=== PATIENT | female | born 1980 | race African-American/Black ===

== ENCOUNTER 2020-12-29 16:58 | Emergency (ER) | payer SELFPAY ==
[2020-12-29 17:06] VITALS: BP 115/62; PULSE 98; RESP 16; TEMP 36.9; O2SAT 100
--- NOTE | 2020-12-29 17:16 | ED.SKABFB ---
HPI - Skin/Abscess/Foreign Bdy General Chief complaint: Skin/Abscess/Foreign Body Stated complaint: BEE STINGS Time Seen by Provider: 12/29/20 17:07 Source: patient and RN notes reviewed Mode of arrival: ambulatory Limitations: no limitations History of Present Illness HPI narrative: Patient presents today with bee stings to her left posterior thigh and right scapula 30 minutes prior to arrival. Patient reports severe pain surrounding the stinging area. States that when she gets stung by bees she typically gets itching over her entire body hospital but denies anaphylactic reactions. She has tried no ufhj-vht-dbeawdl medication prior to arrival. Denies shortness of breath, facial swelling, difficulty swallowing. MD complaint: insect bite/sting Related Data Allergies Allergy/AdvReac Type Severity Reaction Status Date / Time SHELLFISH- HIVES, TONGUE Allergy Unknown Uncoded 11/11/02 12:23 ERASMO Review of Systems Review of Systems: CONSTITUTIONAL: Denies body aches, fever, chills, or sweats. EYES: Denies visual changes, redness, or discharge. ENT: Denies rhinorrhea, congestion, sore throat, or otalgia. CARDIOVASCULAR: Denies chest pain, palpitations, or edema. RESPIRATORY: Denies cough or dyspnea. GASTROINTESTINAL: Denies abdominal pain, nausea, vomiting, or diarrhea. GENITOURINARY: Denies dysuria or hematuria. SKIN: Denies rash, itching. + Bee sting MUSCULOSKELETAL: Denies back pain, joint pain, or myalgia. NEUROLOGIC: Denies headache, numbness, tingling, or weakness. PSYCH: Denies depression or anxiety. PMFSH Comments At time of signature, I have reviewed and agree with nursing past medical, surgical, social and family history unless otherwise noted. Please see nursing chart for further information. There is no relevant family history pertinent to the presenting complaint Exam Narrative: GENERAL: Well-appearing, well-nourished, and in no acute distress. HEAD: Normocephalic, atraumatic. EYES: EOMI. No redness or drainage. Conjunctivae normal. ENT: Mucous membranes pink and moist. NECK: Normal AROM. CHEST: No respiratory distress. EXTREMITIES: Normal range of motion. No edema. SKIN: Warm, dry, no rash. Capillary refill normal. Normal skin turgor. Insect sting to the right scapula with surrounding erythema and localized edema measuring approximately 3 x 3 cm. Insect sting to left posterior upper leg measuring approximately 3 x 4 cm with erythema and localized edema. No additional rashes or swelling noted throughout the body. NEURO: No focal deficits. Alert and oriented x3. Gait steady. PSYCH: Normal affect. No signs of depression or anxiety. Course Course Emergency Course: Patient declines Benadryl or ibuprofen. Vital Signs Vital signs: Vital Signs Temperature 98.4 F 12/29/20 17:06 Pulse Rate 98 12/29/20 17:06 Respiratory Rate 16 12/29/20 17:06 Blood Pressure 115/62 12/29/20 17:06 Pulse Oximetry 100 12/29/20 17:06 Temperature 98.4 F 12/29/20 17:06 Pulse Rate 98 12/29/20 17:06 Respiratory Rate 16 12/29/20 17:06 Blood Pressure 115/62 12/29/20 17:06 Pulse Oximetry 100 12/29/20 17:06 Reviewed MDM - Skin/Abscess/Foreign Bdy Differential Diagnosis Differential diagnosis: Likely insect bites Critical Care Time Critical Care Time Critical Care Time: No Discharge Plan Discharge Clinical Impression: Bee sting Qualifiers: Encounter type: initial encounter Injury intent: accidental or unintentional Qualified Code(s): T63.441A - Toxic effect of venom of bees, accidental (unintentional), initial encounter Patient Disposition: Home, Self-Care Condition: Stable Instructions: Insect Bite or Sting (ED) Additional Instructions: Take some Benadryl for itching and allergic reaction. Take Tylenol or ibuprofen at home for pain. Apply topical calamine lotion or Benadryl cream for itching. Follow-up with your PCP with any concerns. Patient Language: Wolof Follow-up/
== END 2020-12-29 17:21 | disposition home or self-care (01) ==
PROVIDERS: Emergency Provider Nurse Practitioner; PCP Family Medicine
DX: T63.441A Toxic effect of venom of bees, accidental (unintentional), initial encounter (principal)
CPT/HCPCS: 99211; G0463

== ENCOUNTER 2021-03-14 17:28 | Emergency (ER) | payer SELFPAY ==
--- NOTE | 2021-03-14 17:30 | ED.URI ---
HPI - URI/Sore Throat General Chief Complaint: Ear Stated Complaint: ear pain/nasal cocngestion/cough Time Seen by Provider: 03/14/21 17:30 Source: patient and RN notes reviewed History of Present Illness HPI Narrative: Patient is a 40-year-old female who presents the urgent care with her mother with complaints of bilateral ear congestion, nasal congestion, postnasal drainage and mild cough. Patient states the nasal congestion has been off and on since February 23 and she has been taking her daily Claritin and believe Zyrtec as well as taking Sudafed for the last 2 days. Patient states the cough just started 2 days ago. Patient states that she does typically have seasonal allergies but has been able to clear these allergies up . Patient denies of any fever, chills, night, vomiting. Denies of sore throat. No other acute complaints. No acute distress noted. Patient and mother aware of the plan of care. Some parts of this dictation were generated by voice recognition software and may contain typographical and/or grammatical inaccuracies. Related Data Allergies Allergy/AdvReac Type Severity Reaction Status Date / Time SHELLFISH- HIVES, TONGUE Allergy Intermediate Swelling Uncoded 03/14/21 17:32 SWELLS of Lip/Tongue/Throat Review of Systems Review of Systems: CONSTITUTIONAL: Denies fever, chills, or sweats. EYES: Denies visual changes, redness, or discharge. ENT: Reports of nasal congestion, postnasal drainage, bilateral otalgia CARDIOVASCULAR: Denies chest pain, palpitations, or edema. RESPIRATORY: Reports a mild nonproductive cough without dyspnea GASTROINTESTINAL: Denies abdominal pain, nausea, vomiting, or diarrhea. GENITOURINARY: Denies dysuria or hematuria. SKIN: Denies rash or itching. MUSCULOSKELETAL: Denies back pain, joint pain, or myalgia. NEUROLOGIC: Denies headache, numbness, or weakness. All other systems reviewed are negative, except as documented in HPI. PMFSH Comments At the time of my signature, I reviewed and agree with the nursing past medical, surgical, social, and family history. There is no relevant family history pertinent to the patient complaint. Exam Narrative: GENERAL: This is a well-nourished, well-developed patient, in no apparent distress. HEAD: normocephalic, atraumatic. EYES: PERRL. Sclera clear/white. Vision is grossly intact. EARS: External ears normal, auditory canals clear and without drainage, moderate fluid noted behind bilateral TMs without otitis, TMs normal without perforation. Hearing grossly intact. NOSE: External nose normal with no obvious nasal discharge, nares without redness, no rhinorrhea. THROAT: Mucous membranes moist, posterior pharynx clear. Moderate postnasal drainage NECK: Neck supple, non-tender without lymphadenopathy CARDIOVASCULAR: Regular rate and rhythm without murmurs, gallops, or rubs. RESPIRATORY: Clear to auscultation. Breath sounds equal bilaterally. No wheezes, rales, or rhonchi. SKIN: warm, intact with no suspicious lesions or rash, good texture and turgor. NEURO: awake, alert, and oriented to person, place and time. There were no obvious focal neurologic abnormalities. EXTREMITIES: No clubbing, cyanosis, or edema. Course Vital Signs Vital signs: Vital Signs Temperature 98.1 F 03/14/21 17:40 Pulse Rate 99 03/14/21 17:40 Respiratory Rate 16 03/14/21 17:40 Blood Pressure 111/58 L 03/14/21 17:40 Pulse Oximetry 100 03/14/21 17:40 Temperature 98.1 F 03/14/21 17:40 Pulse Rate 99 03/14/21 17:40 Respiratory Rate 16 03/14/21 17:40 Blood Pressure 111/58 L 03/14/21 17:40 Pulse Oximetry 100 03/14/21 17:40 Reviewed MDM - URI/Sore Throat MDM Narrative Medical decision making narrative: Advised patient continue taking her daily allergy medication, Claritin/Zyrtec. Complete the steroid regimen as prescribed. Be sure to eat and drink with the medication. Use Flonase prior to bedtime. May use twice daily for the next 7 days.
[2021-03-14 17:40] VITALS: BP 111/58; PULSE 99; RESP 16; TEMP 36.7; O2SAT 100
== END 2021-03-14 17:54 | disposition home or self-care (01) ==
PROVIDERS: Emergency Provider Nurse Practitioner Family; PCP Family Medicine
DX: J32.9 Chronic sinusitis, unspecified (principal); J30.9 Allergic rhinitis, unspecified
CPT/HCPCS: 99213; G0463

== ENCOUNTER 2023-01-15 08:26 | Outpatient (CLI) | payer OTHER, SELFPAY ==
[2023-01-15 08:53] LABS: Hematocrit 36.1 % (37.0-47.0)
== END 2023-01-15 08:27 | disposition home or self-care (01) ==
PROVIDERS: PCP Hospitalist; Visit Provider Student in an Organized Health Care Education/Training Program
DX: N93.9 Abnormal uterine and vaginal bleeding, unspecified (principal)
CPT/HCPCS: 36415; 85014; 85018

== ENCOUNTER 2023-01-18 01:49 | Day surgery (SDC) | payer OTHER, SELFPAY ==
[2023-01-12 12:46] VITALS: BMI 29.1
--- NOTE | 2023-01-12 12:50 | PC.NURSE ---
Report to the Outpatient Waiting Room, entrance under the green pavilion located off [facility], at time _1000_ on date _[id number]_. Planned Procedure Time: _1200_. Time changes happen often and if your time is changed the preop area will call you the afternoon before. - You and your visitor will be asked to self-screen and do not enter if you have any COVID symptoms. - A mask is optional within the hospital at this time. Patients may have clear liquids (water, carbonated beverages, clear teas, apple juice) until 3 hours prior to surgery with a maximum of 20 ounces. - No food from midnight until time of surgery Take the following medications with a SIP of water the morning of surgery: ____None DO NOT STOP ANY OF YOUR OTHER PRESCRIPTION MEDICATIONS PRIOR TO SURGERY ?EXCEPT THE FOLLOWING Medications to discontinue per physician All vitamins and supplements Date to take last ulsn___[id number] Please no make-up, nail sudanese, hairspray, perfume, deodorant, or body powder the day of surgery. No jewelry (including any body piercings) or valuables the day of surgery, leave them at home. Please take a shower or bath the night before, or the morning of, surgery with an antibacterial soap. Wear comfortable, loose fitting clothing. - Jewelry must be removed prior to entering the operating room. Rings and piercings that are not removed may be cut off. - The hospital will not accept responsibility for valuables. - Please leave all valuables, including medications, at home the day of surgery. If you are going home after surgery, a licensed snaker tractor driver must drive you home. - NO public transportation without another adult if you receive anesthesia. - We recommend that an adult stay with you for 24 hours following discharge. - We also recommend that you do not drive, make important decision, drink alcoholic beverages, or take any drugs that were not prescribed by your health care provider for at least 24 hours after your discharge time. Follow any additional instructions given to you from your surgeon. If you or anyone in your household have experienced Covid symptoms in the past week, please notify your surgeon or the nurse liaison at the phone number below for possible testing. Telephone instructions given to _Patient___and asked if any additional questions and then verbalized understanding. Patient advised to call surgeon office or pre surgery nurse liaison [phone] if any additional questions.
--- NOTE | 2023-01-18 08:00 | PM.IMHP ---
H&P: HPI History of Present Illness Date/Time: 01/18/23 08:00 Chief Complaint: Abnormal uterine bleeding Narrative: 42-year-old female who presents for hysteroscopy D&C for abnormal uterine bleeding.? Patient initially presented after an episode of postcoital bleeding.? Patient was also reporting heavy menses.? Patient had pelvic ultrasound which revealed uterine fibroids and possible polyp.? Patient continues to have abnormal bleeding.? Patient is not interested in hysterectomy.? She is not trying to conceive at this time but does not wish to be infertile. Review of Systems Cardiovascular: Cardiovascular: Denies chest pain, Denies leg edema, Denies palpitations, Denies dyspnea and Denies dyspnea on exertion Respiratory: Respiratory: Denies cough, Denies dyspnea and Denies dyspnea on exertion Gastrointestinal: Gastrointestinal: Denies abdominal pain, Denies constipation, Denies diarrhea, Denies nausea and Denies vomiting Genitourinary: Genitourinary: Denies hematuria, Denies urinary frequency, Denies dysuria, Denies pelvic pain, Denies urinary incontinence and Denies vaginal discharge Neurologic: Reports system reviewed and no additional complaints, except as documented Psychiatric: Psychiatric: Reports no additional psychiatric complaints Endocrine: Endocrine: Denies palpitations [facility] Family History Family History Father Diabetes mellitus Hypertension Sibling Diabetes mellitus Grandparent Diabetes mellitus Social History Social History Smoking status: Never smoker Alcohol intake: never Substance use: never Living arrangements: with family Occupation/Education: occupation Gender identity (if verbalized by the patient): Female Sexual Orientation (if Verbalized by the Patient): Straight or Heterosexual Spiritual care concerns: No Meds Home Medications and Allergies Home Medications Medication Instructions Recorded Confirmed Type condoms - female (FC2 Female #12 ea 09/13/22 Rx Condom) metronidazole 500 mg tablet 500 mg PO Q12H #14 tabs 09/28/22 01/12/23 Rx elderberry fruit 200 mg capsule 200 mg PO TID 01/12/23 01/12/23 History ferrous sulfate 325 mg (65 mg 325 mg PO DAILY 01/12/23 01/12/23 History iron) tablet,delayed release fluticasone propionate 50 2 spray intranasal TID PRN Allergy 01/12/23 01/12/23 History mcg/actuation nasal Symptoms spray,suspension (Flonase Allergy Relief) lactobacillus combination no.8 3 3 cell PO DAILY 01/12/23 01/12/23 History billion cell capsule loratadine 10 mg tablet (Claritin) 10 mg PO DAILY 01/12/23 01/12/23 History multivitamin 1 tablet PO DAILY 01/12/23 01/12/23 History omega 8-gdi-cko-fish oil 300 1 cap PO DAILY 01/12/23 01/12/23 History mg-1,000 mg capsule (Fish Oil) potassium chloride 8 mEq 8 meq PO DAILY 01/12/23 01/12/23 History capsule,extended release Allergies Allergy/AdvReac Type Severity Reaction Status Date / Time diphenhydramine Allergy Intermediate Rash Verified 01/12/23 10:09 [From Benadryl] fluconazole [From Diflucan] Allergy Mild Rash Verified 01/12/23 10:09 SHELLFISH- HIVES, TONGUE Allergy Intermediate Swelling Uncoded 01/12/23 10:09 SWELLS of Lip/Tongue/Throat Exam Const: General: no acute distress Eyes: EOM: EOMs intact bilaterally Neck: Neck: supple Thyroid: thyroid normal Chest: Breast/axilla inspection: normal inspection of the breasts Breast/axilla palpation: normal palpation of the breasts, normal palpation of the axillae and no axillary lymphadenopathy Resp: Effort & Inspection: normal respiratory effort Auscultation: clear to auscultation bilaterally Cardio: Rate: regular rate Rhythm: regular rhythm GI: Inspection: non-distended GI Palp: Yes Soft to palpation, No Tenderness to palpation present (GI) and No Guarding due to palpation present (GI) Ausculta
--- NOTE | 2023-01-18 08:05 | WPDHPUPDATE1 ---
History and Physical Update Update Date/Time: 01/18/23 08:05 History and Physical has been reviewed, including an updated exam of the patient. There are NO changes in the patient's condition. Risks, benefits, and alternatives have been discussed and questions answered. Patient agrees to proceed with procedure.
--- NOTE | 2023-01-18 09:07 | P.PNAN_ITS ---
Anes - Initial Pre Proc Eval Procedure: Operation Date: 01/18/23 12:00 Proposed Procedures p Hysteroscopy Dilation and Curettage with Polypectomy - Oliver Hernandez MD Date/Time: 01/18/23 09:07 Surgeon: Oliver Hernandez MD Pre Op Diagnosis: abnormal uterine bleeding Patient Data Age: 42 Gender: F Height: 1.65 m Weight: 79.5 kg Allergies Allergy/AdvReac Type Severity Reaction Status Date / Time shellfish derived Allergy Severe Anaphylaxis Verified 01/18/23 10:24 fluconazole [From Diflucan] Allergy Mild Rash Verified 01/12/23 10:09 Home Medications Medication Instructions Recorded Confirmed Type condoms - female (FC2 Female #12 ea 09/13/22 Rx Condom) metronidazole 500 mg tablet 500 mg PO Q12H #14 tabs 09/28/22 01/18/23 Rx elderberry fruit 200 mg capsule 200 mg PO TID 01/12/23 01/18/23 History ferrous sulfate 325 mg (65 mg 325 mg PO DAILY 01/12/23 01/18/23 History iron) tablet,delayed release fluticasone propionate 50 2 spray intranasal TID PRN Allergy 01/12/23 01/12/23 History mcg/actuation nasal Symptoms spray,suspension (Flonase Allergy Relief) lactobacillus combination no.8 3 3 cell PO DAILY 01/12/23 01/18/23 History billion cell capsule loratadine 10 mg tablet (Claritin) 10 mg PO DAILY 01/12/23 01/18/23 History multivitamin 1 tablet PO DAILY 01/12/23 01/18/23 History omega 4-vct-fgl-fish oil 300 1 cap PO DAILY 01/12/23 01/18/23 History mg-1,000 mg capsule (Fish Oil) potassium chloride 8 mEq 8 meq PO DAILY 01/12/23 01/18/23 History capsule,extended release Patient hx anesthesia problems: none Family hx anesthesia problems: none Results Review: All pre-operative results and documents have been reviewed as part of the pre- operative evaluation. [facility] Past Medical History Medical History (Updated 01/18/23 @ 09:07 by Reji Crespo DO) WU (obstructive sleep apnea) mild Pre-diabetes Family History Family History Father Diabetes mellitus Hypertension Sibling Diabetes mellitus Grandparent Diabetes mellitus Social History Social History Smoking status: Never smoker Alcohol intake: never Substance use: never Living arrangements: with family Occupation/Education: occupation Gender identity (if verbalized by the patient): Female Sexual Orientation (if Verbalized by the Patient): Straight or Heterosexual Spiritual care concerns: No Anes - Eval Final PreProcedure Day of Procedure 01/18/23 09:07 Patient weight: overweight Heart: regular rate and rhythm Lungs: clear to auscultation Airway: Mallampati scale class II Neurological: alert and oriented Last oral intake: >/= 8 hours ASA classification: II Emergent: no Anesthetic plan: proceed Anesthesia type and monitoring: general GIVS and standard monitoring Results Review: All pre-operative results and documents have been reviewed as part of the pre- operative evaluation. Informed Consent: The patient's anesthetic plan and its attendant risks and benefits were discussed with the patient/family/POA. Questions were solicited and answers provided to the satisfaction of the patient/family/POA.
[2023-01-18 10:10] VITALS: BP 101/61; PULSE 78; RESP 20; TEMP 37.1; O2SAT 100
[2023-01-18] MEDS: ACETAMINOPHEN 500 MG TABLET 1000 MG PO (10:39)
[2023-01-18] MEDS: LACTATED RINGERS 1,000 ML 30 ML IV CONT ×2 (10:45→13:07)
[2023-01-18 12:20] VITALS: BP 100/58; PULSE 74; RESP 14; O2SAT 100
--- NOTE | 2023-01-18 12:21 | W.PM.PROC2 ---
Procedure Note - Detailed Date of Procedure 01/18/23 Pre-op Diagnosis abnormal uterine bleeding Post-op Diagnosis Same Procedure Performed hysteroscopy dilation & curettage hysteroscopic myomectomy Surgeon Oliver Hernandez MD Anesthesia General Indications abnormal uterine bleeding Findings heterogenous mass extending in the uterine cavity from the posterior uterine wall, suspect uterine fibroid. normal tubal ostia bilaterally Description of Procedure Monik Cope presents for the above procedure for AUB. She was counseled as to the indications, risks, benefits, and alternatives to surgery, with the risks including bleeding, infection, damage to surrounding organs, VTE, and complications of anesthesia. Her verbal and written consent was obtained. PROCEDURE: The patient was taken to the OR and general anesthesia induced. She was prepped and draped in Aaron stirrups with support of the back and bilateral lower extremities. I/O catheterization performed of the bladder. The above findings were noted. A single tooth tenaculum was placed on the anterior lip of the cervix. The cervix was dilated with sequential Elana dilators. Hysteroscopy, using a normal saline medium, was performed and showed the above findings. The endometrial lining was visualized and a suspected uterine fibroid within the uterine cavity was found. The operative hysteroscopic blade was introduced and was then used to remove the suspected fibroid and sample the endometrial lining, restoring a normal appearing endometrial cavity. The tissue was sent to pathology. The tenaculum was removed and hemostasis was observed. The patient tolerated the procedure well. Sponge, lap, and needle counts were correct. The patient was taken to the recovery room in stable condition. Estimated Blood Loss 10 Urine Output 150 Drains No Packing No Pathology Yes (endometrial curettings ) Complications No immediate complications Condition Stable Disposition PACU [facility] Billing Surgery - Charge Forward: Surgery Billing
[2023-01-18] MEDS: fentaNYL CITRATE INJ (*CRX) 100 MCG/2 ML VIAL 25 MCG IV PUSH ×2 (12:33→12:40)
[2023-01-18 12:50] VITALS: BP 103/50; PULSE 63; RESP 14; O2SAT 100
[2023-01-18] MEDS: ONDANSETRON INJ 4 MG/2 ML VIAL IV PUSH (13:07)
[2023-01-18 13:20] VITALS: BP 101/63; PULSE 57; RESP 14
== END 2023-01-18 14:00 | disposition home or self-care (01) ==
PROVIDERS: PCP Hospitalist; Visit Provider Student in an Organized Health Care Education/Training Program
PROC: 0U5B8ZZ Destruction of Endometrium, Via Natural or Artificial Opening Endoscopic (ICD-10-PCS; CPT 58563; principal; 2023-01-18 12:00)
DX: N93.9 Abnormal uterine and vaginal bleeding, unspecified (principal); N85.8 Other specified noninflammatory disorders of uterus; G47.33 Obstructive sleep apnea (adult) (pediatric); R73.03 Prediabetes
CPT/HCPCS: 58558; 88305; A9270; J2250; J2405; J2704; J3010; J7120

== ENCOUNTER → 2023-03-02 07:18 | Outpatient (CLI) | payer OTHER, SELFPAY ==
--- NOTE | ~2023-03-02 | MM_ITS ---
EXAMINATION: MM screening andra BI w mei HISTORY: Screening mammogram TECHNIQUE: Craniocaudal and mediolateral oblique 3-D tomosynthesis images were obtained and synthetic 2-D images were generated. CAD analysis was submitted and interpreted. COMPARISON: No prior mammogram is available for comparison at this institution. BREAST PARENCHYMAL COMPOSITION:There are scattered areas of fibroglandular density. FINDINGS: No suspicious mass, calcification, or architectural distortion are identified in either rafa ast to suggest malignancy. IMPRESSION: No mammographic evidence of malignancy. Recommend routine screening mammography in one year. BI-RADS Category 1: Negative Reviewed, dictated and finalized at location .
== END ==
PROVIDERS: PCP Student in an Organized Health Care Education/Training Program; Visit Provider Student in an Organized Health Care Education/Training Program
DX: Z12.31 Encounter for screening mammogram for malignant neoplasm of breast (principal)
CPT/HCPCS: 77063; 77067

== ENCOUNTER 2023-03-17 08:17 | Emergency (ER) | payer OTHER, SELFPAY ==
[2023-03-17 08:43] VITALS: BP 104/73; PULSE 93; RESP 16; TEMP 36.9; O2SAT 100
--- NOTE | 2023-03-17 08:43 | ED.URI ---
HPI - URI/Sore Throat General Chief Complaint: Upper Respiratory Infection Stated Complaint: Cold symptoms Time Seen by Provider: 03/17/23 08:43 Source: patient, RN notes reviewed and old records reviewed Mode of arrival: ambulatory Limitations: no limitations History of Present Illness HPI Narrative: 42-year-old female presents to the [facility] with complaints cold symptoms that started yesterday. Patient reports sinus congestion and cough. Reports a low-grade fever of 99. No treatment prior to arrival. Related Data Home Medications Medication Instructions Recorded Confirmed elderberry fruit 200 mg capsule 200 mg PO TID 01/12/23 03/17/23 ferrous sulfate 325 mg (65 mg 325 mg PO DAILY 01/12/23 03/17/23 iron) tablet,delayed release fluticasone propionate 50 2 spray intranasal TID PRN Allergy 01/12/23 03/17/23 mcg/actuation nasal Symptoms spray,suspension (Flonase Allergy Relief) lactobacillus combination no.8 3 3 cell PO DAILY 01/12/23 03/17/23 billion cell capsule loratadine 10 mg tablet (Claritin) 10 mg PO DAILY 01/12/23 03/17/23 multivitamin 1 tablet PO DAILY 01/12/23 03/17/23 omega 0-sdo-qsy-fish oil 300 1 cap PO DAILY 01/12/23 03/17/23 mg-1,000 mg capsule (Fish Oil) potassium chloride 8 mEq 8 meq PO DAILY 01/12/23 03/17/23 capsule,extended release Allergies Allergy/AdvReac Type Severity Reaction Status Date / Time shellfish derived Allergy Severe Anaphylaxis Verified 03/17/23 08:41 fluconazole [From Diflucan] Allergy Mild Rash Verified 03/17/23 08:41 Review of Systems Review of Systems: All systems reviewed & are unremarkable except as noted in HPI and below Constitutional: Constitutional: Reports no additional constitutional complaints Eyes: Eyes: Reports no additional eye complaints ENT: Reports as per HPI, Reports sinus pain and Reports sinus pressure Cardiovascular: Cardiovascular: Reports no additional cardiovascular complaints, Denies chest pain and Denies dyspnea Respiratory: Respiratory: Reports as per HPI, Reports chest congestion, Reports cough and Denies dyspnea Gastrointestinal: Gastrointestinal: Reports no additional gastrointestinal complaints, Denies abdominal pain, Denies nausea and Denies vomiting Musculoskeletal: Musculoskeletal: Reports no additional musculoskeletal complaints Integumentary/Breasts: Skin/Breast: Reports system reviewed and no additional complaints, except as docu Neurologic: Reports system reviewed and no additional complaints, except as documented Psychiatric: Psychiatric: Reports no additional psychiatric complaints Allergic/Immunologic: Allergic/Immunologic: Reports no additional allergic/immunologic complaints PMFSH Past Medical History Medical History WU (obstructive sleep apnea) mild Pre-diabetes Surgical History Surgical History History of hysteroscopy D & C Family History Family History Father Diabetes mellitus Hypertension Sibling Diabetes mellitus Grandparent Diabetes mellitus Social History Social History Smoking status: Never smoker Alcohol intake: never Substance use: never Living arrangements: with family Occupation/Education: occupation Gender identity (if verbalized by the patient): Female Sexual Orientation (if Verbalized by the Patient): Straight or Heterosexual Spiritual care concerns: No Comments At the time of my signature, I reviewed and agree with the nursing past medical, surgical, social, and family history. There is no relevant family history pertinent to the patient complaint. Exam Const: General: cooperative, healthy appearing, comfortable, no acute distress, well developed, alert and well nourished Nutritional Appearance: well nourished Orientation/consciousnes
== END 2023-03-17 09:02 | disposition home or self-care (01) ==
PROVIDERS: Emergency Provider Nurse Practitioner; PCP Family Medicine
DX: J11.1 Influenza due to unidentified influenza virus with other respiratory manifestations (principal); Z20.822 Contact with and (suspected) exposure to COVID-19; R73.03 Prediabetes
CPT/HCPCS: 87426; 87804; 99213; C9803; G0463

== ENCOUNTER 2023-03-18 08:21 | Emergency (ER) | payer OTHER, SELFPAY ==
[2023-03-18 08:48] VITALS: BP 107/69; PULSE 84; RESP 16; TEMP 36.6; O2SAT 100
--- NOTE | 2023-03-18 09:02 | ED.URI ---
HPI - URI/Sore Throat General Chief Complaint: Upper Respiratory Infection Stated Complaint: Flu symptoms Time Seen by Provider: 03/18/23 09:02 Source: patient, RN notes reviewed and old records reviewed Mode of arrival: ambulatory Limitations: no limitations History of Present Illness HPI Narrative: 42-year-old female returns to the [facility] requesting another influenza test. Patient started symptoms 2 days ago with congestion. Son tested positive for flu yesterday. Onset (ago): day(s) (1) Related Data Home Medications Medication Instructions Recorded Confirmed elderberry fruit 200 mg capsule 200 mg PO TID 01/12/23 03/18/23 ferrous sulfate 325 mg (65 mg 325 mg PO DAILY 01/12/23 03/18/23 iron) tablet,delayed release fluticasone propionate 50 2 spray intranasal TID PRN Allergy 01/12/23 03/18/23 mcg/actuation nasal Symptoms spray,suspension (Flonase Allergy Relief) lactobacillus combination no.8 3 3 cell PO DAILY 01/12/23 03/18/23 billion cell capsule loratadine 10 mg tablet (Claritin) 10 mg PO DAILY 01/12/23 03/18/23 multivitamin 1 tablet PO DAILY 01/12/23 03/18/23 omega 4-bsk-ned-fish oil 300 1 cap PO DAILY 01/12/23 03/18/23 mg-1,000 mg capsule (Fish Oil) potassium chloride 8 mEq 8 meq PO DAILY 01/12/23 03/18/23 capsule,extended release Allergies Allergy/AdvReac Type Severity Reaction Status Date / Time shellfish derived Allergy Severe Anaphylaxis Verified 03/18/23 08:28 fluconazole [From Diflucan] Allergy Mild Rash Verified 03/18/23 08:28 Review of Systems Review of Systems: All systems reviewed & are unremarkable except as noted in HPI and below Constitutional: Constitutional: Reports no additional constitutional complaints Eyes: Eyes: Reports no additional eye complaints ENT: Reports as per HPI Cardiovascular: Cardiovascular: Reports no additional cardiovascular complaints, Denies chest pain and Denies dyspnea Respiratory: Respiratory: Reports no additional respiratory complaints, Denies chest congestion, Denies cough and Denies dyspnea Gastrointestinal: Gastrointestinal: Reports no additional gastrointestinal complaints, Denies abdominal pain, Denies nausea and Denies vomiting Musculoskeletal: Musculoskeletal: Reports no additional musculoskeletal complaints Integumentary/Breasts: Skin/Breast: Reports system reviewed and no additional complaints, except as docu Neurologic: Reports system reviewed and no additional complaints, except as documented Psychiatric: Psychiatric: Reports no additional psychiatric complaints Allergic/Immunologic: Allergic/Immunologic: Reports no additional allergic/immunologic complaints PMFSH Past Medical History Medical History WU (obstructive sleep apnea) mild Pre-diabetes Surgical History Surgical History History of hysteroscopy D & C Family History Family History Father Diabetes mellitus Hypertension Sibling Diabetes mellitus Grandparent Diabetes mellitus Social History Social History Smoking status: Never smoker Alcohol intake: never Substance use: never Living arrangements: with family Occupation/Education: occupation Gender identity (if verbalized by the patient): Female Sexual Orientation (if Verbalized by the Patient): Straight or Heterosexual Spiritual care concerns: No Comments At the time of my signature, I reviewed and agree with the nursing past medical, surgical, social, and family history. There is no relevant family history pertinent to the patient complaint. Exam Const: General: cooperative, healthy appearing, comfortable, no acute distress, well developed, alert and well nourished Nutritional Appearance: well nourished Orientation/consciousness: patient oriented x3 Limitations:
== END 2023-03-18 09:14 | disposition home or self-care (01) ==
PROVIDERS: Emergency Provider Nurse Practitioner; PCP Hospitalist
DX: J11.1 Influenza due to unidentified influenza virus with other respiratory manifestations (principal); R73.03 Prediabetes
CPT/HCPCS: 87804; 99213; G0463

== ENCOUNTER 2023-12-11 09:25 | Emergency (ER) | payer OTHER, SELFPAY ==
[2023-12-11 09:35] VITALS: BP 114/71; PULSE 86; RESP 16; TEMP 36.8; O2SAT 100
--- NOTE | 2023-12-11 10:04 | ED.SKABFB ---
HPI - Skin/Abscess/Foreign Bdy General Chief complaint: Skin/Abscess/Foreign Body Stated complaint: INSECT BITES Time Seen by Provider: 12/11/23 10:05 Source: patient, RN notes reviewed and old records reviewed Mode of arrival: ambulatory Limitations: no limitations History of Present Illness HPI narrative: 43-[facility]-old [facility] for complaint insect bites to posterior neck, back, bilateral upper extremities bilateral lower extremities. Patient reports she believes they are mosquito bites and that she started noticing them 3 days ago. Patient reports allergy to shellfish, fluconazole, diphenhydramine. Patient denies ever having a reaction like this to insect bites in the past. Patient denies recent illness, cough, shortness of breath, fever, recent travel. Patient has not attempted to treat at home. Patient in no acute distress. Related Data Home Medications Medication Instructions Recorded Confirmed elderberry fruit 200 mg capsule 200 mg PO TID 01/12/23 12/11/23 ferrous sulfate 325 mg (65 mg 325 mg PO DAILY 01/12/23 12/11/23 iron) tablet,delayed release fluticasone propionate 50 2 spray intranasal TID PRN Allergy 01/12/23 12/11/23 mcg/actuation nasal Symptoms spray,suspension (Flonase Allergy Relief) lactobacillus combination no.8 3 3 cell PO DAILY 01/12/23 12/11/23 billion cell capsule loratadine 10 mg tablet (Claritin) 10 mg PO DAILY 01/12/23 12/11/23 multivitamin 1 tablet PO DAILY 01/12/23 12/11/23 omega 0-ahc-mhn-fish oil 300 1 cap PO DAILY 01/12/23 12/11/23 mg-1,000 mg capsule (Fish Oil) potassium chloride 8 mEq 8 meq PO DAILY 01/12/23 12/11/23 capsule,extended release Allergies Allergy/AdvReac Type Severity Reaction Status Date / Time shellfish derived Allergy Severe Anaphylaxis Verified 12/11/23 09:37 fluconazole [From Diflucan] Allergy Mild Rash Verified 12/11/23 09:37 diphenhydramine AdvReac Hyperactive Verified 12/11/23 09:36 [From Benadryl] Review of Systems Review of Systems: All systems reviewed & are unremarkable except as noted in HPI and below Constitutional: Constitutional: Reports no additional constitutional complaints Eyes: Eyes: Reports no additional eye complaints ENT: Reports system reviewed and no additional complaints, except as documented Cardiovascular: Cardiovascular: Reports no additional cardiovascular complaints, Denies chest pain and Denies dyspnea Respiratory: Respiratory: Reports no additional respiratory complaints, Denies cough and Denies dyspnea Musculoskeletal: Musculoskeletal: Reports no additional musculoskeletal complaints Integumentary/Breasts: Skin/Breast: Reports as per HPI, Reports swelling, Reports pruritus, Reports new lesions ( Insect bites) and Reports erythema Neurologic: Reports system reviewed and no additional complaints, except as documented Psychiatric: Psychiatric: Reports no additional psychiatric complaints PMFSH Past Medical History Medical History WU (obstructive sleep apnea) mild Pre-diabetes Surgical History Surgical History History of hysteroscopy D & C Family History Family History Father Diabetes mellitus Hypertension Sibling Diabetes mellitus Grandparent Diabetes mellitus Social History Social History Smoking status: Never smoker Alcohol intake: never Substance use: never Living arrangements: with family Occupation/Education: occupation Gender identity (if verbalized by the patient): Female Sexual Orientation (if Verbalized by the Patient): Straight or Heterosexual Spiritual care concerns: No Comments At the time of my signature, I reviewed and agree with the nursing past medical, surgical, social, and family history. T
== END 2023-12-11 10:27 | disposition home or self-care (01) ==
PROVIDERS: Emergency Provider Nurse Practitioner Family; PCP Hospitalist
DX: L25.9 Unspecified contact dermatitis, unspecified cause (principal); S10.96XA Insect bite of unspecified part of neck, initial encounter; S40.862A Insect bite (nonvenomous) of left upper arm, initial encounter; S40.861A Insect bite (nonvenomous) of right upper arm, initial encounter; S50.861A Insect bite (nonvenomous) of right forearm, initial encounter; S80.862A Insect bite (nonvenomous), left lower leg, initial encounter; S80.861A Insect bite (nonvenomous), right lower leg, initial encounter; W57.XXXA Bitten or stung by nonvenomous insect and other nonvenomous arthropods, initial encounter; R73.03 Prediabetes
CPT/HCPCS: 99213; G0463

== ENCOUNTER 2023-12-20 16:41 | Emergency (ER) | payer OTHER, SELFPAY ==
--- NOTE | 2023-12-20 16:44 | ED.GENADULT ---
HPI - General Adult General Chief complaint: Upper Respiratory Infection Stated complaint: FEVER/BODY ACHES Time Seen by Provider: 12/20/23 16:51 Source: patient, RN notes reviewed and old records reviewed Mode of arrival: ambulatory Limitations: no limitations History of Present Illness HPI narrative: 43-year-old female to [facility] for complaint of fever of 102, nasal congestion, and body aches this started this morning. Patient reports bilateral ear fullness, especially on left for 3 days. Patient denies cough, sore throat, headache, chest pain, shortness of breath, difficulty swallowing, nausea, vomiting, diarrhea, urinary changes. Patient able to tolerate fluids by mouth. Respirations even and nonlabored. Patient in no acute distress. Related Data Home Medications Medication Instructions Recorded Confirmed elderberry fruit 200 mg capsule 200 mg PO TID 01/12/23 12/20/23 ferrous sulfate 325 mg (65 mg 325 mg PO DAILY 01/12/23 12/20/23 iron) tablet,delayed release fluticasone propionate 50 2 spray intranasal TID PRN Allergy 01/12/23 12/20/23 mcg/actuation nasal Symptoms spray,suspension (Flonase Allergy Relief) lactobacillus combination no.8 3 3 cell PO DAILY 01/12/23 12/20/23 billion cell capsule loratadine 10 mg tablet (Claritin) 10 mg PO DAILY 01/12/23 12/20/23 multivitamin 1 tablet PO DAILY 01/12/23 12/20/23 omega 8-onz-hqm-fish oil 300 1 cap PO DAILY 01/12/23 12/20/23 mg-1,000 mg capsule (Fish Oil) potassium chloride 8 mEq 8 meq PO DAILY 01/12/23 12/20/23 capsule,extended release Allergies Allergy/AdvReac Type Severity Reaction Status Date / Time shellfish derived Allergy Severe Anaphylaxis Verified 12/20/23 16:51 fluconazole [From Diflucan] Allergy Mild Rash Verified 12/20/23 16:51 diphenhydramine AdvReac Hyperactive Verified 12/20/23 16:51 [From Benadryl] Review of Systems Review of Systems: All systems reviewed & are unremarkable except as noted in HPI and below Constitutional: Constitutional: Reports as per HPI, Reports body ache(s) and Reports fever(s) Eyes: Eyes: Reports no additional eye complaints ENT: Reports as per HPI and Reports otalgia ( fullness; R some left) Cardiovascular: Cardiovascular: Reports no additional cardiovascular complaints, Denies chest pain and Denies dyspnea Respiratory: Respiratory: Reports no additional respiratory complaints, Denies cough and Denies dyspnea Musculoskeletal: Musculoskeletal: Reports no additional musculoskeletal complaints Neurologic: Reports system reviewed and no additional complaints, except as documented Psychiatric: Psychiatric: Reports no additional psychiatric complaints PMFSH Past Medical History Medical History WU (obstructive sleep apnea) mild Pre-diabetes Surgical History Surgical History History of hysteroscopy D & C Family History Family History Father Diabetes mellitus Hypertension Sibling Diabetes mellitus Grandparent Diabetes mellitus Social History Social History Smoking status: Never smoker Alcohol intake: never Substance use: never Living arrangements: with family Occupation/Education: occupation Gender identity (if verbalized by the patient): Female Sexual Orientation (if Verbalized by the Patient): Straight or Heterosexual Spiritual care concerns: No Comments At the time of my signature, I reviewed and agree with the nursing past medical, surgical, social, and family history. There is no relevant family history pertinent to the patient complaint. Exam Const: General: cooperative, no acute distress, alert, ill appearing acutely, tired appearing, uncomfortable and well nourished Nutritional Appearance: well nourished Orie
[2023-12-20 16:55] VITALS: BP 105/78; PULSE 111; RESP 16; TEMP 36.6; O2SAT 99
[2023-12-20 17:10] LABS: EDINFLUASCREEN Negative; EDINFLUBSCREEN Negative; EDSTREPNEGPOS1 Presumptive Negative
== END 2023-12-20 17:15 | disposition home or self-care (01) ==
PROVIDERS: Emergency Provider Nurse Practitioner Family; PCP Family Medicine
DX: H66.92 Otitis media, unspecified, left ear (principal); Z20.822 Contact with and (suspected) exposure to COVID-19; R73.03 Prediabetes
CPT/HCPCS: 87081; 87426; 87804; 87880; 99213; G0463

== ENCOUNTER 2024-05-16 08:03 | Emergency (ER) | payer OTHER, SELFPAY ==
[2024-05-16 08:22] VITALS: BP 102/62; PULSE 88; RESP 16; TEMP 36.7; O2SAT 100
--- NOTE | 2024-05-16 08:22 | ED.URI ---
HPI - URI/Sore Throat General Chief Complaint: Upper Respiratory Infection Stated Complaint: Congestion/Sore Th Time Seen by Provider: 05/16/24 08:22 Source: patient, RN notes reviewed and old records reviewed Mode of arrival: ambulatory Limitations: no limitations History of Present Illness HPI Narrative: 43-year-old female who presents to [facility] with complaints of sinus drainage for the past 5 days with increased symptoms since yesterday. Patient reports that he has a cough with some mucous production and scratchy throat. Patient reports that she took Sudafed yesterday morning. Patient reports that she saw beck tender and she use to take Loratadine daily and use nasal spray was told she didn't have allergies. Patient reports that she has some ear pressure and some right sided facial discomfort. Did take Tylenol at 0200. MD elicited complaint: cough, sore throat, rhinorrhea, nasal congestion and sinus pain Pertinent past history: sinusitis Onset (ago): day(s) (5) Consistency: progressively worsening Severity: moderate Description of mucous: yellow Able to tolerate fluids by mouth: Yes Treatments prior to arrival: acetaminophen and other (one sudafed) Related Data Home Medications ?Medication ?Instructions ?Recorded ?Confirmed ?Last Taken ?Type elderberry fruit 200 mg capsule 200 mg PO TID 01/12/23 02/13/24 01/14/23 History ferrous sulfate 325 mg (65 mg 325 mg PO DAILY 01/12/23 02/13/24 01/14/23 History iron) tablet,delayed release fluticasone propionate 50 2 spray intranasal TID PRN Allergy 01/12/23 02/13/24 Unknown History mcg/actuation nasal Symptoms spray,suspension (Flonase Allergy Relief) lactobacillus combination no.8 3 3 cell PO DAILY 01/12/23 02/13/24 01/14/23 History billion cell capsule loratadine 10 mg tablet (Claritin) 10 mg PO DAILY 01/12/23 02/13/24 01/16/23 History multivitamin 1 tablet PO DAILY 01/12/23 02/13/24 01/14/23 History potassium chloride 8 mEq 8 meq PO DAILY 01/12/23 02/13/24 01/14/23 History capsule,extended release Allergies Allergy/AdvReac Type Severity Reaction Status Date / Time fluconazole (From Diflucan) Allergy Mild Rash Verified 02/13/24 09:00 diphenhydramine (From AdvReac Hyperactive Verified 02/13/24 09:00 Benadryl) Review of Systems Review of Systems: CONSTITUTIONAL: Reports malaise, no chills, sweats, or fever. EYES: Denies visual changes, redness, or discharge. ENT: Reports rhinorrhea, congestion,right sided sinus pain, otalgia and sore throat. CARDIOVASCULAR: Denies chest pain, palpitations, or edema. RESPIRATORY: Reports cough.? Denies dyspnea. GASTROINTESTINAL: Denies abdominal pain, nausea, vomiting, diarrhea SKIN: Denies rash or itching. MUSCULOSKELETAL: Denies myalgia. NEUROLOGIC: Denies headache. All systems reviewed & are unremarkable except as noted in HPI and below PMFSH Past Medical History Medical History Exposure to herpes simplex virus (HSV) Microcytic anemia Pre-diabetes WU (obstructive sleep apnea) mild Surgical History Surgical History History of hysteroscopy D & C Family History Family History Father Diabetes mellitus Hypertension Sibling Diabetes mellitus Grandparent Diabetes mellitus Social History Social History Smoking status: Never smoker Alcohol intake: never Substance use: never Do You Feel Safe in your Home?: Yes Lack of Transportation: No Lack of Food: Never True Current Housing: I Have Housing Concerned About Future Housing: No Difficulty Paying Gas/Electric Bills: No Difficulty Paying for Meds: No Currently Unemployed: No Education: Master's Degree or Higher Difficulty w/ Childcare or Family Care: No Living arrangements: with family Occupation/Education: occupation Gender identity (if verbalized by the patient): Female Sexual Orientation (if Verbalized by the Patient): Straight or Heterosexual Spiritual care concerns: No Comments At time of signature, agree with nursing past medical, surgical, social and family history. There is no relevant family history pertinent to the presenting complaint Exam Narrative: GENERAL: Well-appearing, well-nourished, and in no acute distress. HEAD: Normocephalic EYES: PERRLA, conjunctivae clear ENT: Nares clear, turbinates edematous and erythematous, clear to yellowish discharge. Mucous membranes moist. TM pearly banerjee with dull light reflex bilaterally; no tragal tenderness. Oropharynx erythematous without lesions. Tonsils not enlarged and without exudate, no drooling, no hoarseness, no trismus, uvula midline.post nasal discharge NECK: Supple. No lymphadenopathy CHEST: Clear to auscultation, breath sounds equal. No wheezing, rhonchi, rales, or stridor. No respiratory distress, speaks in full sentences.cough, SAO2 100% on room air HEART: Regular rate and rhythm. No murmur heard. SKIN: Warm, dry, no rash. NEURO: Alert and oriented x3. PSYCH: Normal mood and affect Course Course Emergency Course: Patient is aware of diagnosis, understands and agrees to treatment plan.? Anticipatory guidance given.? Patient agrees to follow-up as directed and is aware of reasons to seek care at the emergency department. Portions of this record may have been created with voice recognition software Level of Care: Express Care Visit Vital Signs Vital signs: Vital Signs Temperature 36.7 C 05/16/24 08:22 Pulse Rate 88 05/16/24 08:22 Respiratory Rate 16 05/16/24 08:22 Blood Pressure 102/62 05/16/24 08:22 Pulse Oximetry 100 05/16/24 08:22 Temperature 36.7 C 05/16/24 08:22 Pulse Rate 88 05/16/24 08:22 Respiratory Rate 16 05/16/24 08:22 Blood Pressure 102/62 05/16/24 08:22 Pulse Oximetry 100 05/16/24 08:22 Reviewed MDM - URI/Sore Throat MDM Narrative Medical decision making narrative: Differential diagnosis considered: Hollins virus, strep pharyngitis, allergic rhinitis, upper respiratory tract infection, sinusitis, rhinosinusitis, nasopharyngitis. viral pharyngitis, otitis media, otitis externa, pneumonia, bronchitis, viral cough syndrome, viral syndrome, and influenza.? Exam findings show no acute concerns or changes; patient is non-toxic appearing and is in no distress.? Patient is appropriate for outpatient treatment and follow-up. Differential Diagnosis Differential diagnosis: Likely upper respiratory infection, sinusitis, influenza, pharyngitis and other ( COVID-19) Medical Records Attestation: I reviewed the patient's medical records. Lab Data Attestation: I reviewed the patient's lab results. Lab results narrative: strep screen negative, culture sent, COVID antigen negative, influenza a negative, influenza B negative Labs: Lab Results 05/16/24 05/16/24 Range/Units 08:17 08:38 POC Influenza A Ag Negative (Negative) POC Influenza B Ag Negative (Negative) POC SARS CoV-2 Ag Negative (Negative) POC Grp A Strep Screen Negative (Negative) Critical Care Time Critical Care Time Critical Care Time: No Discharge Plan Discharge Clinical Impression: Sinusitis, bacterial Patient Disposition: Home, Self-Care Condition: Stable Instructions: Antibiotic Form, Sinusitis (ED) Additional Instructions: Increase fluids especially juices and water [id number] cough and cold medicine of your choice for your symptoms Zyrtec Claritin or Tamela daily include plain Sudafed in a.m. and p.m. continue your nasal spray use nasal saline 1st gently blow your nose then use prescription spray heat to the face 20-30 minutes 4-6 times a day for pain Salt water gargles, throat lozenges or throat sprays as desired Antibiotic as directed--finished the medication Tylenol or ibuprofen for any fever pain If your symptoms persist, change or worsen significantly before you can contact your personal physician then please, without delay, go to the emergency department for further evaluation. Follow-up with PCP in 7-10 days or sooner if needed Patient Language: Wallisian Prescriptions: New amoxicillin-pot clavulanate 875-125 mg tablet 1 tablet PO Q12H Qty: 20 0RF Rx Instructions: take all of prescription recommend taking with food also recommend use of probiotic or eating activia yogurt while on this medication No Action triamcinolone acetonide 0.1 % cream 1 applic topical TID PRN (Reason: itching; irritation) Qty: 454 0RF multivitamin Tablet 1 tablet PO DAILY ferrous sulfate 325 mg (65 mg iron) Tablet,Delayed Release (Dr/Ec) 325 mg PO DAILY loratadine [Claritin] 10 mg Tablet 10 mg PO DAILY elderberry fruit 200 mg Capsule 200 mg PO TID lactobacillus combination no.8 3 billion cell Capsule 3 cell PO DAILY fluticasone propionate [Flonase Allergy Relief] 50 mcg/actuation spray,suspension 2 spray NASAL TID PRN (Reason: Allergy Symptoms) Rx Instructions: administer into each nostril potassium chloride 8 mEq Capsule, Extended Release 8 meq PO DAILY Rx Instructions: OTC Follow-up/Referrals: Dimitris,MD Alpesh [Primary Care Provider] - Time of Disposition: 08:45 Quality Paramjit Coma Scale Eyes: Open Verbal: Oriented and Alert Motor: Follows Commands Paramjit Coma Total Score: 15
[2024-05-16 08:33] LABS: EDSTREPNEGPOS1 Negative (Negative)
[2024-05-16 08:42] LABS: EDCOVIDSCREEN Negative (Negative); EDINFLUASCREEN Negative (Negative); EDINFLUBSCREEN Negative (Negative)
== END 2024-05-16 08:54 | disposition home or self-care (01) ==
PROVIDERS: Emergency Provider Registered Nurse; PCP Hospitalist
DX: J32.9 Chronic sinusitis, unspecified (principal); Z20.822 Contact with and (suspected) exposure to COVID-19; R73.03 Prediabetes; D50.9 Iron deficiency anemia, unspecified
CPT/HCPCS: 87081; 87426; 87804; 87880; 99213; G0463

== ENCOUNTER 2025-01-10 08:04 | Emergency (ER) | payer OTHER, SELFPAY ==
[2025-01-10 08:17] VITALS: BP 101/72; PULSE 88; RESP 16; TEMP 36.3; O2SAT 99
--- NOTE | 2025-01-10 08:23 | ED.GENADULT ---
HPI - General Adult General Chief complaint: Upper Respiratory Infection Stated complaint: CONGESTION/R TONSIL SWOLLEN Source: patient Mode of arrival: ambulatory Limitations: no limitations History of Present Illness HPI narrative: Pt presents for evaluation of sick symptoms since yesterday. She reports sinus congestion, right sided otalgia and sore throat. She took sudafed once, which helped her symptoms. She denies any fever, chills, nausea, vomiting, diarrhea, cough or SOB. No recent sick contacts to her knowledge. She does not smoke. Related Data Home Medications ?Medication ?Instructions ?Recorded ?Confirmed ?Last Taken ?Type elderberry fruit 200 mg capsule 200 mg PO TID 01/12/23 02/13/24 01/14/23 History ferrous sulfate 325 mg (65 mg 325 mg PO DAILY 01/12/23 02/13/24 01/14/23 History iron) tablet,delayed release fluticasone propionate 50 2 spray intranasal TID PRN Allergy 01/12/23 02/13/24 Unknown History mcg/actuation nasal Symptoms spray,suspension (Flonase Allergy Relief) lactobacillus combination no.8 3 3 cell PO DAILY 01/12/23 02/13/24 01/14/23 History billion cell capsule loratadine 10 mg tablet (Claritin) 10 mg PO DAILY 01/12/23 02/13/24 01/16/23 History multivitamin 1 tablet PO DAILY 01/12/23 02/13/24 01/14/23 History potassium chloride 8 mEq 8 meq PO DAILY 01/12/23 02/13/24 01/14/23 History capsule,extended release Allergies Allergy/AdvReac Type Severity Reaction Status Date / Time fluconazole (From Diflucan) Allergy Mild Rash Verified 01/10/25 08:15 diphenhydramine (From AdvReac Hyperactive Verified 01/10/25 08:15 Benadryl) Review of Systems Review of Systems: CONSTITUTIONAL: Denies fever, chills, or sweats. EYES: Denies visual changes, redness, or discharge. ENT: Reports sinus congestion, sore throat and right sided otalgia CARDIOVASCULAR: Denies chest pain, palpitations, or edema. RESPIRATORY: Denies cough or dyspnea. GASTROINTESTINAL: Denies abdominal pain, nausea, vomiting, or diarrhea. GENITOURINARY: Denies dysuria or hematuria. SKIN: Denies rash or itching. MUSCULOSKELETAL: Denies back pain, joint pain, or myalgia. NEUROLOGIC: Denies headache, numbness, dizziness, or weakness. PSYCHIATRIC: Denies anxiety or depression. [facility] Past Medical History Medical History Exposure to herpes simplex virus (HSV) Microcytic anemia Pre-diabetes WU (obstructive sleep apnea) mild Surgical History Surgical History History of hysteroscopy D & C Family History Family History Father Diabetes mellitus Hypertension Sibling Diabetes mellitus Grandparent Diabetes mellitus Social History Social History Smoking status: Never smoker Alcohol intake: never Substance use: never Do You Feel Safe in your Home?: Yes Lack of Transportation: No Lack of Food: Never True Current Housing: I Have Housing Concerned About Future Housing: No Difficulty Paying Gas/Electric Bills: No Difficulty Paying for Meds: No Currently Unemployed: No Education: Master's Degree or Higher Difficulty w/ Childcare or Family Care: No Living arrangements: with family Occupation/Education: occupation Gender identity (if verbalized by the patient): Female Sexual Orientation (if Verbalized by the Patient): Straight or Heterosexual Spiritual care concerns: No Exam Narrative: GENERAL: Well-appearing, well-nourished, and in no acute distress. HEAD: Normocephalic, atraumatic. EYES: PERRLA and EOMI. ENT: Nares clear, no rhinorrhea or epistaxis. Mucous membranes moist. Oropharynx without tonsillar hypertrophy exudate or other lesions. Bilateral TMs pearly banerjee nonbulging NECK: Supple. No adenopathy or masses. No carotid bruits or JVD CHEST: Clear to auscultation. No respiratory distress. No wheezes rales or rhonchi HEART: Regular rate and rhythm. No murmur heard. Normal peripheral pulses. ABDOMEN: Soft, nontender, nondistended, normal active bowel sounds. EXTREMITIES: Normal range of motion. No edema. SKIN: Warm, dry, no rash. NEURO: No focal deficits. Alert and oriented x3. PSYCH: Normal mood and affect. Course Course Emergency Course: This is a 44-year-old female who presented for evaluation of sick symptoms. COVID, influenza strep were all negative. Exam is consistent with acute viral syndrome. Increase hydration. Dvbm-wyl-fjmuipy agents for symptom management. Follow up with primary provider. Go to the ER for worsening symptoms. Patient in agreement with plan care. Level of Care: Express Care Visit Vital Signs Vital signs: Vital Signs Temperature 36.3 C L 01/10/25 08:17 Pulse Rate 88 01/10/25 08:17 Respiratory Rate 16 01/10/25 08:17 Blood Pressure 101/72 01/10/25 08:17 Pulse Oximetry 99 01/10/25 08:17 Temperature 36.3 C L 01/10/25 08:17 Pulse Rate 88 01/10/25 08:17 Respiratory Rate 16 01/10/25 08:17 Blood Pressure 101/72 01/10/25 08:17 Pulse Oximetry 99 01/10/25 08:17 Medical Decision Making Vital Signs Vital Signs: Vital Signs Temperature 36.3 C L 01/10/25 08:17 Pulse Rate 88 01/10/25 08:17 Respiratory Rate 16 01/10/25 08:17 Blood Pressure 101/72 01/10/25 08:17 Pulse Oximetry 99 01/10/25 08:17 Temperature 36.3 C L 01/10/25 08:17 Pulse Rate 88 01/10/25 08:17 Respiratory Rate 16 01/10/25 08:17 Blood Pressure 101/72 01/10/25 08:17 Pulse Oximetry 99 01/10/25 08:17 Discharge Plan Discharge Clinical Impression: Acute viral syndrome Patient Disposition: Home Condition: Stable Instructions: Antibiotic Form, Upper Respiratory Infection (ED), Viral Syndrome (ED) Additional Instructions: Sudafed should help with sinus congestion Ibuprofen, cepacol lozenges and gargling with warm salt water should help your sore throat Patient Language: Sudanese Prescriptions: No Action triamcinolone acetonide 0.1 % cream 1 applic topical TID PRN (Reason: itching; irritation) Qty: 454 0RF multivitamin Tablet 1 tablet PO DAILY ferrous sulfate 325 mg (65 mg iron) Tablet,Delayed Release (Dr/Ec) 325 mg PO DAILY loratadine [Claritin] 10 mg Tablet 10 mg PO DAILY elderberry fruit 200 mg Capsule 200 mg PO TID lactobacillus combination no.8 3 billion cell Capsule 3 cell PO DAILY fluticasone propionate [Flonase Allergy Relief] 50 mcg/actuation spray,suspension 2 spray NASAL TID PRN (Reason: Allergy Symptoms) Rx Instructions: administer into each nostril potassium chloride 8 mEq Capsule, Extended Release 8 meq PO DAILY Rx Instructions: OTC Follow-up/Referrals: Dimitris,MD Alpesh [Primary Care Provider, Unknown] Time of Disposition: 08:37
[2025-01-10 08:40] LABS: EDCOVIDSCREEN Negative (Negative); EDINFLUASCREEN Negative (Negative); EDINFLUBSCREEN Negative (Negative); EDSTREPNEGPOS1 Negative (Negative)
== END 2025-01-10 08:45 | disposition home or self-care (01) ==
PROVIDERS: Emergency Provider Nurse Practitioner; PCP Hospitalist
DX: B34.9 Viral infection, unspecified (principal); Z20.822 Contact with and (suspected) exposure to COVID-19; R73.03 Prediabetes; D50.9 Iron deficiency anemia, unspecified
CPT/HCPCS: 87081; 87426; 87804; 87880; 99213; G0463

== ENCOUNTER 2025-03-02 13:10 | Emergency (ER) | payer SELFPAY ==
--- NOTE | 2025-03-02 13:14 | ECG_ITS ---
Test Date: 2025-03-02 13:24:18 Measurements Intervals Parrish Rate: 88 P: 58 OK: 125 QRS: 34 QRSD: 73 T: 45 QT: 352 QTc: 427 Interpretive Statements SINUS RHYTHM WITH SINUS ARRHYTHMIA BORDERLINE ST-T WAVE ABNORMALITY- INFERIOR LEADS BASELINE ARTIFACT- II, III, AVR, AVL, AVF, V1-V6 BORDERLINE ECG No previous ECG available for comparison Electronically Signed On 03-02-2025 15:39:00 CDT by Milo Goss D.O.
--- NOTE | 2025-03-02 13:43 | ED.ARRPALP ---
HPI - Arrhythmia/Palpitations General Chief Complaint: Arrhythmia/Palpitations Stated Complaint: Rapid Heart Beat Time Seen by Provider: 03/02/25 13:20 Source: patient and RN notes reviewed Mode of arrival: ambulatory Limitations: no limitations History of Present Illness HPI narrative: 44-year-old female presents Express Care complaining of heart palpitations. Patient said today approximately 1 hour ago she felt like her heart was racing out of her chest. Patient said it rapidly subsided. Patient said this is been ongoing issue over the last 2-3 months. With the episodes, patient denies any chest pains, shortness of breath, difficulty breathing, nausea vomiting, left arm pain, jaw pain, or any other symptoms. Patient says she has been under lot of stress more than usual. Patient has not tried anything [id number] to help with symptoms. Patient denies any significant past medical history. She does report a heart history in her family. Related Data Home Medications ?Medication ?Instructions ?Recorded ?Confirmed ?Last Taken ?Type elderberry fruit 200 mg capsule 200 mg PO TID 01/12/23 02/13/24 01/14/23 History lactobacillus combination no.8 3 3 cell PO DAILY 01/12/23 02/13/24 01/14/23 History billion cell capsule multivitamin 1 tablet PO DAILY 01/12/23 02/13/24 01/14/23 History Allergies Allergy/AdvReac Type Severity Reaction Status Date / Time fluconazole (From Diflucan) Allergy Mild Rash Verified 03/02/25 13:28 cephalexin (From Keflex) AdvReac Mild Rash Verified 03/02/25 13:28 diphenhydramine (From AdvReac Hyperactive Verified 03/02/25 13:28 Benadryl) Review of Systems Review of Systems: CONSTITUTIONAL: Denies fever, chills, or sweats. EYES: Denies visual changes, redness, or discharge. ENT: Denies rhinorrhea, congestion, sore throat, or otalgia. CARDIOVASCULAR: Denies chest pain, chest pressure, chest pain with exertion, dizziness, lightheadedness, orthopnea, or edema. Positive for palpitations. RESPIRATORY: Denies cough, difficulty breathing, wheezing, or dyspnea. GASTROINTESTINAL: Denies abdominal pain, nausea, vomiting, or diarrhea. GENITOURINARY: Denies dysuria or hematuria. SKIN: Denies rash or itching. MUSCULOSKELETAL: Denies back pain, joint pain, or myalgia. NEUROLOGIC: Denies headache, numbness, or weakness. PSYCHIATRIC: Positive for anxiety. Negative for depression. All other systems reviewed are negative, except as documented in HPI. [facility] Past Medical History Medical History Screening mammogram for breast cancer HPV in female Exposure to herpes simplex virus (HSV) Microcytic anemia Pre-diabetes WU (obstructive sleep apnea) mild Surgical History Surgical History History of hysteroscopy D & C Family History Family History Father Diabetes mellitus Hypertension Sibling Diabetes mellitus Grandparent Diabetes mellitus Social History Social History Smoking status: Never smoker Alcohol intake: never Substance use: never Do You Feel Safe in your Home?: Yes Lack of Transportation: No Lack of Food: Never True Current Housing: I Have Housing Concerned About Future Housing: No Difficulty Paying Gas/Electric Bills: No Difficulty Paying for Meds: No Currently Unemployed: No Education: Master's Degree or Higher Difficulty w/ Childcare or Family Care: No Living arrangements: with family Occupation/Education: occupation Gender identity (if verbalized by the patient): Female Sexual Orientation (if Verbalized by the Patient): Straight or Heterosexual Spiritual care concerns: No Comments At the time of my signature, I reviewed and agree with the nursing past medical, surgical, social, and family history. There is no relevant family history pertinent to the patient complaint. Exam Narrative: GENERAL: This is a well-nourished, well-developed adult, in no apparent distress. They are non ill-appearing, nontoxic appearing. Patient is anxious, calmed with reassurance. HEAD: normocephalic, atraumatic. EYES: Sclera clear/white. Conjunctiva normal. Vision is grossly intact. Extraocular movements intact EARS: External ears normal, Hearing grossly intact. NOSE: External nose normal THROAT: Mucous membranes moist, NECK: Neck supple, non-tender without lymphadenopathy, masses or thyromegaly. No bruit auscultated. CARDIOVASCULAR: Regular rate and rhythm without clicks, murmurs, gallops, or rubs. Normal S1-S2. RESPIRATORY: Clear to auscultation. Breath sounds equal bilaterally. No wheezes, rales, or rhonchi. Respiratory rate normal, respiratory effort nonlabored, no respiratory distress SKIN: warm, Dry, intact with no suspicious lesions or rash, good texture and turgor. NEURO: awake, alert, and oriented to person, place and time. There were no obvious focal neurologic abnormalities. EXTREMITIES: No joint tenderness, effusion, or edema noted. BACK: Nontender without deformity. No CVA tenderness. Course Course Emergency Course: Portions of this record may have been created with voice recognition software Level of Care: Express Care Visit Vital Signs Vital signs: Reviewed MDM - Arrhythmia/Palpitations MDM Narrative Medical decision making narrative: EKG reassuring. No ischemic findings. Normal sinus rhythm. Patient having no chest pain or any other associated cardiac symptoms. Palpitations seem to be related to stress and anxiety. Discussed with patient urgent care does not have the capabilities have a comprehensive workup for her palpitations and offer her an ER transfer for further evaluation and management of her symptoms including but not limited to lab work and further assessment. Patient declined to go to the ER and says she will follow-up closely with her PCP. Patient may need a Holter monitor to further evaluate her palpitations which she can get through PCP were be referred to a restoration silversmith. Patient nontoxic appearing, no apparent distress. Vital signs hemodynamically stable. Discussed physical exam findings. Advised supportive measures and signs/symptoms to go to the ER. Pt is appropriate for outpt treatment and f/u. Differential Diagnosis Differential diagnosis: Likely palpitations, anxiety, sinus tachycardia, artial fibrillation, ventricular premature beats and other ECG Data EKG #1: Attestation: I personally reviewed and interpreted this ECG as follows: ECG completion date: 03/02/25 ECG completion time: 13:24 Prior ECG tracings: not available for review EKG Interpretation: normal rate, sinus rhythm, no ectopy, no ST changes, normal QRS, normal QT and NL axis Critical Care Time Critical Care Time Critical Care Time: No Discharge Plan Discharge Clinical Impression: Palpitations Patient Disposition: Home Condition: Stable Instructions: Heart Palpitations (ED) Additional Instructions: Your EKG is reassuring today, is a normal sinus rhythm. Please follow-up with your PCP for further evaluation of your palpitations in 3-5 days. Please rest, drink plenty of clear liquids, and exercise regularly to help manage stress. If you develops chest pain or pressure, palpitations that do not go away, fast heart rate, nausea, vomiting, profusely sweating, left arm pain, left jaw pain, breathing problems or any serious concerns please go to the ER immediately. Patient Language: [place] Prescriptions: No Action nystatin 100,000 unit/gram powder 1 applic topical BID Qty: 15 1RF multivitamin Tablet 1 tablet PO DAILY elderberry fruit 200 mg Capsule 200 mg PO TID lactobacillus combination no.8 3 billion cell Capsule 3 cell PO DAILY triamcinolone acetonide 0.1 % cream 1 applic topical BID PRN (Reason: itching; irritation) Qty: 454 0RF Follow-up/Referrals: PHYSICIAN,PREMIX OPERATOR [facility] [Primary Care Provider, Internal Medicine] Time of Disposition: 13:42
== END 2025-03-02 13:45 | disposition home or self-care (01) ==
DX: R00.2 Palpitations (principal); R73.03 Prediabetes
CPT/HCPCS: 93005; 99213; G0463